=== PATIENT | male | born 1950 | race Caucasian/White ===

== ENCOUNTER 2021-04-24 12:46 | Emergency (ER) | payer OTHER, SELFPAY ==
[~2021-04-24] VITALS: Ht 177.8 cm; Wt 61.2 kg
[2021-04-24 13:04] VITALS: BP_SYST 162
[2021-04-24 14:00] LABS: BASOPHILS % (AUTO) 0.5 % (0.0-2.0); EOSINOPHILS # (AUTO) 0.1 K/uL (0.0-0.4); EOSINOPHILS % (AUTO) 1.3 % (0.0-4.0); HEMATOCRIT 47.3 % (36-54); HEMOGLOBIN 16.2 g/dL (14.0-18.0); LYMPHOCYTES # (AUTO) 1.6 K/uL (1.0-5.5); LYMPHOCYTES % (AUTO) 20.3 % (20.5-51.5); MEAN CORPUSCULAR HEMOGLOBIN 33 pg (27-31); MEAN CORPUSCULAR HGB CONC 34 % (32-36); MEAN CORPUSCULAR VOLUME 96 fL (79.0-98.0); MONOCYTES # (AUTO) 0.5 K/uL (0.0-1.0); MONOCYTES % (AUTO) 6.9 % (1.7-9.3); NEUTROPHILS # (AUTO) 5.5 K/uL (1.8-7.7); PLATELET COUNT (AUTO) 176 K/uL (130-430); RED BLOOD CELL COUNT(AUTO) 4.95 MIL/uL (4.2-6.2); RED CELL DISTRIBUTION WIDTH 13.1 % (9.0-15.0); WHITE BLOOD COUNT (AUTO) 7.8 K/uL (4.8-10.8)
[2021-04-24 14:13] LABS: CALCIUM 10.1 mg/dL (8.4-11.0); POTASSIUM 4.3 mmol/L (3.5-5.1)
[2021-04-24 14:19] LABS: ALBUMIN 4.1 g/dL (3.4-4.8); INR 0.9 (0.80-1.20); PROTHROMBIN TIME 9.8 SECS (9.5-12.5); TOTAL BILIRUBIN 0.5 mg/dL (0.0-1.0)
[2021-04-24] MEDS ORDERED: SERT100T PO (14:39)
--- NOTE | 2021-04-24 14:47 | NUR ---
MD AT BEDSIDE PLAN TO ADMIT IV RIGHT AC 20G ON MONITOR SR NO ECTOPY VSS.
--- NOTE | 2021-04-24 14:59 | NUR ---
NEW PLAN IS TO DC PT AND FOR PT TO PMD TO DO MRI OUTPATIENT
[2021-04-24 15:22] VITALS: BP_SYST 159
--- NOTE | 2021-04-24 15:23 | NUR ---
Patient given written and verbal discharge instructions and verbalizes understanding. JUANA FIGUEREDO MD discussed with patient the results and treatment provided. Patient in stable condition. ID arm band removed. IV catheter removed intact and dressing applied, no active bleeding. Patient educated on pain management and to follow up with PMD. Pain Scale 0. Opportunity for questions provided and answered. Medication side effect fact sheet provided.
== END 2021-04-24 15:23 | disposition home or self-care (01) ==
LOC: SED 12:46
DX: R41.82 Altered mental status, unspecified (principal); Z79.899 Other long term (current) drug therapy; Z20.822 Contact with and (suspected) exposure to COVID-19
CPT/HCPCS: 36415; 70450-TC; 71045; 76376; 80053; 84484; 85025; 85610-TC; 85730-TC; 93005; 99285